=== PATIENT | male | born 1985 | race Caucasian/White ===

== ENCOUNTER 2019-11-05 13:20 | Emergency (ER) | payer MEDICAID ==
[~2019-11-05] VITALS: Ht 182.9 cm; Wt 90.9 kg
[2019-11-05] MEDS ORDERED: terbutaline 1 mg/ml inj SQ STA (14:07)
[2019-11-05] MEDS ORDERED: albuterol 2.5 MG/3 ML nebule CONTNEB PRN (14:10)
[2019-11-05] MEDS ORDERED: montelukast 10mg tablet PO SCH (14:10)
[2019-11-05] MEDS ORDERED: methylPREDNISolone sod succ 125mg/2ml vial IV ONE (14:10)
[2019-11-05] MEDS ORDERED: normal saline 1000ML IV soln IVB ONE ×2 (14:10)
--- NOTE | 2019-11-05 14:26 | NUR ---
clarified with jeffry garduno before admin terbutaline inj sq.
[2019-11-05 15:49] VITALS: BP 133/74
[2019-11-05] MEDS ORDERED: PRED20TA PO (15:54)
[2019-11-05] MEDS ORDERED: ALBU6.7H9 INH (15:54)
[2019-11-05] MEDS ORDERED: MONT10TA21 PO (15:54)
== END 2019-11-05 16:09 | disposition home or self-care (01) ==
LOC: ER 13:20
DX: J45.901 Unspecified asthma with (acute) exacerbation (principal); R06.03 Acute respiratory distress; Z88.8 Allergy status to other drugs, medicaments and biological substances; Z79.899 Other long term (current) drug therapy
CPT/HCPCS: 71045; 94644; 96361; 96372; 96374; 99285; J2930; J3105; J7030; 94640